=== PATIENT | male | born 1985 | race African-American/Black ===

== ENCOUNTER 2024-12-31 16:41 | Emergency (ER) | payer MEDICAID, OTHER ==
[~2024-12-31] VITALS: Ht 172.7 cm; Wt 78.8 kg
--- NOTE | 2024-12-31 17:37 | ED.PDOC ---
History of Present Illness(SKN HPI Comments 39 year old male presents to the ED with a chief compliant of wound check. Patient states he has been experiencing wound to LT foot in between 4th and 5th toe, was seen and prescribed antibiotics, finished course about 1 month ago. Patient states he believes wound is not healing properly, came for wound check. Denies PMHx as well as fever, chills, numbness/tingling, chest pain, shortness of breath,nausea, vomiting, diarrhea. No other symptoms or modifying factors present at this time. Chief Complaint: Wound Check Time Seen by MD: 17:30 History of Present Illness: Medications, Allergies Allergies: Coded Allergies: NO KNOWN ALLERGIES (Unverified , 12/31/24) Information Source: Patient Mode of Arrival: Ambulatory Severity: Moderate Timing: Months Duration: Since onset Prehospital treatment: None Location: Foot Mechanism: Preceding Wound Object: None Past Medical History PAST MEDICAL HISTORY: Denies Surgical History: Denies all surgeries Family History Family History: Reviewed,noncontributory to illness, No family hx of Cancer, No family hx of DM, No family hx of Heart usha, No family hx of HTN, No family hx ofKidney usha, No family hx of Liver usha, No family hx of Lung usha, No family hx of Stroke Social History Smoker: Non-Smoker Alcohol: Denies ETOH Use Drugs: Denies Drug Use Lives In: Home Constitutional: denies: chills, diaphoresis, fatigue, fever, malaise, sweats, weakness, others EENTM: denies: blurred vision, double vision, ear bleeding, ear discharge, ear drainage, ear pain, ear ringing, eye pain, eye redness, hearing loss, mouth pain, mouth swelling, nasal discharge, nose bleeding, nose congestion, nose pain, photophobia, tearing, throat pain, throat swelling, voice changes, others Respiratory: denies: cough, hemoptysis, orthopnea, SOB at rest, shortness of breath, SOB with excertion, stridor, wheezing, others Cardiovascular: denies: chest pain, dizzy spells, diaphoresis, Dyspnea on exertion, edema, irregular heart beat, left arm pain, lightheadedness, palpitations, PND, syncope, others Gastrointestinal: denies: abdomen distended, abdominal pain, blood streaked bowels, constipated, diarrhea, dysphagia, difficulty swallowing, hematemesis, melena, nausea, poor appetite, poor fluid intake, rectal bleeding, rectal pain, vomiting, others Genitourinary: denies: burning, dysuria, flank pain, frequency, hematuria, incontinence, penile discharge, penile sore, pain, testicle pain, testicle swelling, urgency, others Neurological: denies: dizziness, fainting, headache, left sided numbness, left sided weakness, numbness, paresthesia, pre-existing deficit, right sided numbnes s, right sided weakness, seizure, speech problems, tingling, tremors, weakness, others Musculoskeletal: denies: back pain, gout, joint pain, joint swelling, muscle pain, muscle stiffness, neck pain, others Integumetry: reports: wounds (RT foot); denies: bruises, change in color, change in hair/nails, dryness, laceration, lesions, lumps, rash, others Allergic/Immunocompromised: denies: Difficulty Healing, Frequent Infections, Hives, Itching, others Hematologic/Lymphatic: denies: anemia, blood clots, easy bleeding, easy bruisin g, swollen glands, others Endocrine: denies: excessive hunger, excessive sweating, excessive thirst, excessive urination, flushing, intolerance to cold, intolerance to heat, unexplained weight gain, unexplained weight loss, others Psychiatric: denies: anxiety, bipolar disorder, depression, hopeless, panic disorder, schizophrenia, sleepless, suicidal, others All Other Systems: Reviewed and Negative Physical Exam General Appearance: Normal HEENT: Normal ENT Inspection, Pharynx Normal, TMs Normal Neck: Full Range of Motion, Non-Tender, Normal, Normal Inspection Respiratory: Chest Non-Tender, Lungs Clear, No Accessory Muscle Use, No Respiratory Distress, Normal Breath Sounds Cardiovascular: No Edema, No JVD, No Murmur, No Gallop, Normal Peripheral Pulses, Regular Rate/Rhythm Breast Exam: Deferred Gastrointestinal: No Organomegaly, Non Tender, No Pulsatile Mass, Normal Bowel Sounds, Soft Genitalia: Deferred Pelvic: Deferred Rectal: Deferred Extremities: No calf tenderness, Normal capillary refill Musculoskeletal : Location: Left Extremity Location: Foot (1 cm massarative ulcer between 4th and 5th toe) Apperance: Normal Neurologic: Alert, sales associate key 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 Was a procedure done?: No Differential Diagnosis (INTG) Differential Diagnosis: Atopic dermatitis, Candidiasis, Cellulitis X-Ray, Labs, Meds, VS Vital Signs Date Time Temp Pulse Resp B/P (MAP) Pulse Ox O2 Delivery O2 Flow Rate FiO2 12/31/24 16:43 98.4 95 18 132/87 86 98.4 X-Ray, Labs, Meds, VS Comment No obvious signs of erosion or osteomyelitis on x-ray Patient be sent home with clindamycin 3 times a day Follow up in next 2-4 days if symptoms worsen. Time of 1ST Reevaluation: 18:00 Reevaluation 1ST: Unchanged Patient Education/Counseling: Diagnosis, Treatment, Prognosis, Need For Follow Up (Follow up in 24-48 hours if symptoms worsen.) Family Education/Counseling: No Family Present SEPSIS Sepsis Screen Date sepsis recognized/suspect: Dec 31, 2024 Time Sepsis recognized/suspect: 1642 Recent Procedure: No On Antibiotic Therapy: No Respiratory Rate >20: No Heart Rate >90: No Temp<36 C (96.8 F) or >38.3 C: No SBP <90 or MAP <65 mmHG: No New Acute Mental Status Change: No Is the patient on CPAP, BIPAP,: No Physician Orders L Foot 3 View Xray (12/31/24 18:15) Vital Signs Date Time Temp Pulse Resp B/P (MAP) Pulse Ox O2 Delivery O2 Flow Rate FiO2 12/31/24 16:43 98.4 95 18 132/87 86 98.4 Departure 1 Departure Time of Disposition: 19:17 Impression: Primary Impression: Foot ulceration Qualified Codes: L97.521 - Non-pressure chronic ulcer of other part of left foot limited to breakdown of skin Disposition: 01 HOME / SELF CARE / HOMELESS Condition: Stable e-Prescriptions Clindamycin Hcl (Clindamycin Hcl) 300 Mg Cap 1 CAP PO TID, #21 CAP Prov: DAVID ENRIQUE CORPORATE ANALYST 12/31/24 Discharged With: Self Critical Care Note Critical Care Time?: No Stability Stability form required: No Heart Score Heart Score: Heart Score Response (Comments) Value History N/A 0 EKG N/A 0 Age N/A 0 Risk Factors N/A 0 Troponin N/A 0 Total 0 I personally scribed for DAVID ENRIQUE ([email or web address]) on 12/31/24 at 17:37. Electronically submitted by Bella Oleary ([email or web address]). DAVID ENRIQUE Dec 31, 2024 17:37
--- NOTE | 2024-12-31 19:00 | DVH ---
CLINICAL INDICATION: wound TECHNIQUE: 3 radiographic views of the left foot were obtained. Comparison: None FINDINGS/IMPRESSION: Soft tissue swelling is noted over the left 5th metatarsal. No radiopaque foreign body No fracture or dislocation. If osteomyelitis is of clinical concern recommend MRI
[2024-12-31] MEDS ORDERED: CLIN1CAP70 PO (19:18)
[2024-12-31 20:10] VITALS: BP 114/91; PULSE 86; RESP 16; TEMP 98.4
[2024-12-31 20:25] VITALS: O2SAT 100
== END 2024-12-31 20:28 | disposition home or self-care (01) ==
LOC: ER 16:47
DX: L97.521 Non-pressure chronic ulcer of other part of left foot limited to breakdown of skin (principal); Z79.899 Other long term (current) drug therapy
CPT/HCPCS: 73630